=== PATIENT | male | born 1980 | race Caucasian/White ===

== ENCOUNTER 2024-06-19 15:22 | Emergency (ER) | payer OTHER, SELFPAY ==
[2024-06-19 15:23] VITALS: BMI 34.4
== END 2024-06-19 15:52 | disposition left against medical advice (07) ==
LOC: ER 15:59
PROVIDERS: Emergency Provider Emergency Medicine Emergency Medical Services
DX: Z53.21 Procedure and treatment not carried out due to patient leaving prior to being seen by health care provider (principal)
CPT/HCPCS: 99283